=== PATIENT | male | born 1990 | race Two or more races ===

== ENCOUNTER 2017-02-15 00:02 | Emergency (ER) | payer OTHER ==
--- NOTE | 2017-02-15 02:26 | RADIOLOGY REPORT (SQ) ---
EXAM DESCRIPTION: HAND LEFT 3 VIEWS COMPLETED DATE/TIME: 02/15/2017 1:57 am REASON FOR STUDY: laceration COMPARISON: None. EXAM PARAMETERS: NUMBER OF VIEWS: Three views. TECHNIQUE: AP, lateral and oblique radiographic images acquired of the left hand. LIMITATIONS: None. FINDINGS: MINERALIZATION: Normal. BONES: No acute fracture or dislocation. No worrisome bone lesions. JOINTS: No effusions. SOFT TISSUES: Known laceration at the dorsal aspect of the left hand. No foreign body. OTHER: No other significant finding. IMPRESSION: Soft tissue injury. Otherwise unremarkable. TECHNICAL DOCUMENTATION: JOB ID: [id number] [employer] ([email or web address])- All Rights Reserved
[2017-02-15] MEDS ORDERED: LIDOCAINE 1% INJ-PF (10 MG/ML) 30 ML SDV INJ ONE (02:37)
[2017-02-15] MEDS ORDERED: DIPH/PERTUSS(ACELL)/TETANUS VAC/PF 0.5 ML SYR (>=10YO) IM ONE (02:39)
--- NOTE | 2017-02-15 02:50 | ER Document Report ---
HPI - HPI Pain Level: 4 Notes: Patient is a 26-year-old male who presents the ED complaining of a left palm laceration prior to arrival. Patient states that the knife was a little older and may have had some rust on it. Patient is not sure when his last tetanus was but does not believe it was in the last 5 years. Patient states that he still has sensation to his digits along with complete movement in his fingers. Patient states that he has been applying gauze to the wound to keep it from bleeding. The pain does not radiate. Denies any drug allergies. His PCM is the [place]. Denies any headache, fever, chest pain, palpitations, syncope, cough, shortness of breath, wheeze, dyspnea, abdominal pain, nausea/vomiting, numbness/ tingling, muscle paralysis/weakness. - ROS Notes: REVIEW OF SYSTEMS: CONSTITUTIONAL : Denies fever, chills, or sweats. Denies recent illness. EENT: Denies eye, ear, throat, or mouth pain or symptoms. Denies nasal or sinus congestion or discharge. Denies throat, tongue, or mouth swelling or difficulty swallowing. CARDIOVASCULAR: Denies chest pain. Denies palpitations or racing or irregular heart beat. Denies ankle edema. RESPIRATORY: Denies cough, cold, or chest congestion. Denies shortness of breath, difficulty breathing, or wheezing. GASTROINTESTINAL: Denies abdominal pain or distention. Denies nausea, vomiting , or diarrhea. Denies blood in vomitus, stools, or per rectum. Denies black, tarry stools. Denies constipation. GENITOURINARY: Denies difficulty urinating, painful urination, burning, frequency, blood in urine, or discharge. MUSCULOSKELETAL: see hpi SKIN: see hpi NEUROLOGICAL: Denies confusion or altered mental status. Denies passing out or loss of consciousness. Denies dizziness or lightheadedness. Denies headache. Denies weakness or paralysis or loss of use of either side. Denies problems with gait or speech. Denies sensory loss, numbness, or tingling. ALL OTHER SYSTEMS REVIEWED AND NEGATIVE. Dictation was performed using [employer] recognition software - DERM Skin Color: Normal, [place], Other Past Medical History - Social History Smoking Status: Never Smoker Chew tobacco use (# tins/day): No Frequency of alcohol use: None Drug Abuse: None Family History: Reviewed & Not Pertinent Renal/ Medical History: Denies: Hx Peritoneal Dialysis - Immunizations Hx Diphtheria, Pertussis, Tetanus Vaccination: Yes Vertical Provider Document - CONSTITUTIONAL Agree With Documented VS: Yes Notes: PHYSICAL EXAMINATION: GENERAL: Well-appearing, well-nourished and in no acute distress. LUNGS: Breath sounds clear to auscultation bilaterally and equal. No wheezes rales or rhonchi. HEART: Regular rate and rhythm without murmurs, rubs, gallops. Musculoskeletal: Left hand/fingers: FROM to passive/active. Strength 5+/5. N/V intact distal. No compromise noted. Extremities: No cyanosis, clubbing, or edema b/l. Peripheral pulses 2+. Capillary refill less than 3 seconds. NEUROLOGICAL: Normal sensory, motor exams PSYCH: Normal mood, normal affect. SKIN: 5-5.5cm linear superficial laceration noted to the left thenar eminence. + bleeding. No abscess or purulent discharge noted. - INFECTION CONTROL TRAVEL OUTSIDE OF THE [place] IN LAST 30 DAYS: No - RESPIRATORY O2 Sat by Pulse Oximetry: 97 Course - Re-evaluation Re-evalutation: 02/15/17 04:00 Patient is an afebrile, well-hydrated, 26-year-old male who presents the ED with a left thenar laceration vitals stable. PE otherwise unremarkable for any focal neurological deficits. Wound edges approximated appropriately utilizing 7 simple interrupted sutures. Wound dressing placed along with wound instructions being reviewed. Tdap given IM today. I will give the patient Augmentin twice a day for 5 days as prophylactic. Advised recheck with PCM in 2 -3 days. Sutures will need removed in 10-14 days. Consider consult with a hand specialist/orthopedics with any numbness/tingling, muscle weakness/ paralysis, or any other worsening/concerning symptoms. Return to the ED with any worsening/concerning symptoms otherwise as needed. Patient is in agreement. - Vital Signs Vital signs: Temp Pulse Resp BP Pulse Ox 98.8 F 66 16 127/64 H 97 02/15/17 00:15 02/15/17 00:15 02/15/17 00:15 02/15/17 00:15 02/15/17 00:15 Procedures - Laceration/Wound Repair Left Hand Time completed: 13:50 Wound length (cm): 5 Wound's Depth, Shape: Superficial, Linear - A Laceration pre-procedure: Sterile PPE donned, Sterile drapes applied - normal bowel is a little bottle, Shur-Clens applied Anesthetic type: 1% Lidocaine Volume Anesthetic (mLs): 10 Wound explored: Clean, No foreign body removed Irrigated w/ Saline (mLs): 100 Wound Debrided: Minimal Wound Repaired With: Sutures Suture Size/Type: 4:0, Nylon Number of Sutures: 7 Layer Closure?: No Post-procedure wound care: Sterile dressing applied Post-procedure NV exam normal: Yes Complications: No Discharge - Discharge Clinical Impression: Hand laceration Qualifiers: Encounter type: initial encounter Foreign body presence: without foreign body Laterality: left Qualified Code(s): S61.412A - Laceration without foreign body of left hand, initial encounter Condition: Stable Disposition: HOME, SELF-CARE Instructions: Antibiotic Ointment Protection ([facility]), Laceration Care ([facility]), Prophylactic Antibiotic ([facility]), Tetanus Immunization Given ([facility]), Soap Cleansing ([facility]) Additional Instructions: Do not shower or bathe for 24 hours. After 24 hours you may shower but no submersion of the wound under water. Keep the original dressing on the wound for 24 hours unless the drainage soaks through. Change the dressing daily thereafter and keep the knots of the suture material clean from any dried discharge. You may leave the wound open to the air once there is no more discharge. Return to the ED and/or your PCM in 2-3 days for a recheck. Monitor for any signs of worsening pain or redness, purulent drainage, streaks, and/or fever. Return to the ED if noticing any of the above symptoms or as needed. Take medications as directed. Your sutures will need to be removed in 12-14 days. Consider consult with hand specialist/orthopedics for any worsening /concerning symptoms as needed. Return to the ED with any worsening symptoms and/or development of fever, headache, chest pain, palpitations, syncope, shortness of breath, trouble breathing, abdominal pain, n/v/d, muscle weakness/paralysis, numbness/tingling, abscess, purulent discharge, red streaks, or other worsening symptoms that are concerning to you. Prescriptions: Amox Tr/Potassium Clavulanate [Augmentin 875-125 Tablet] 1 tab PO BID #10 tablet Forms: Elevated Blood Pressure Referrals: [facility] [Provider Group] - Follow up in 3-5 days [facility] [Provider Group] - Follow up as needed
[2017-02-15 04:27] VITALS: BP 123/94
== END 2017-02-15 04:25 | disposition home or self-care (01) ==
LOC: ER 00:02
PROC: 0HQGXZZ Repair Left Hand Skin, External Approach (ICD-10-PCS; principal; 2017-02-15)
DX: S61.412A Laceration without foreign body of left hand, initial encounter (principal); W26.0XXA Contact with knife, initial encounter; Y93.89 Activity, other specified
CPT/HCPCS: 90471; 90715; 99283